=== PATIENT | male | born 1995 | race Caucasian/White ===

== ENCOUNTER 2023-07-06 04:14 | Day surgery (SDC) | payer OTHER ==
[2023-07-01 16:50] VITALS: BMI 19.5
[2023-07-06] MEDS ORDERED: LIDOCAINE HCL/PF 1% SDV 5ML VIAL ONE (07:52)
[2023-07-06] MEDS ORDERED: DEXAMETHASONE SOD PHOSPHATE 10 MG/1 ML VIAL ONE (07:52)
[2023-07-06] MEDS ORDERED: LIDOCAINE 1% P/F 10 MG/ML VIAL INF ONE (10:26)
[2023-07-06] MEDS ORDERED: IOHEXOL 180 MG/1 ML ML IJ ONE (10:27)
[2023-07-06] MEDS ORDERED: DEXAMETHASONE SOD PHOSPHATE 10 MG/1 ML VIAL IVPUSH ONE (10:28)
[2023-07-06] MEDS ORDERED: ACETAMINOPHEN 500 MG TABLET (FP) ONE (10:54)
[2023-07-06 11:01] VITALS: PULSE 82; RESP 18
[2023-07-06 11:41] VITALS: BP 124/72; TEMP 98
[2023-07-06] MEDS ORDERED: ACETAMINOPHEN 500 MG TABLET (FP) PO PRN (16:12)
== END 2023-07-06 11:41 | disposition home or self-care (01) ==
LOC: JASU-SURG 04:14
PROVIDERS: ATTEND Pain Medicine Pain Medicine
PROC: 3E0R3BZ Introduction of Anesthetic Agent into Spinal Canal, Percutaneous Approach (ICD-10-PCS; 2023-07-06)
PROC: 3E0R33Z Introduction of Anti-inflammatory into Spinal Canal, Percutaneous Approach (ICD-10-PCS; principal; 2023-07-06 10:00)
DX: M54.16 Radiculopathy, lumbar region (principal)
CPT/HCPCS: 76000-TC-FY; J1100

== ENCOUNTER 2023-08-06 05:04 | Day surgery (SDC) | payer OTHER ==
[2023-08-03 16:14] VITALS: BMI 19.5
[2023-08-06] MEDS ORDERED: LIDOCAINE HCL/PF 1% SDV 5ML VIAL ONE (07:29)
[2023-08-06] MEDS ORDERED: DEXAMETHASONE SOD PHOSPHATE 10 MG/1 ML VIAL ONE (07:29)
[2023-08-06 12:36] VITALS: RESP 20; TEMP 98
[2023-08-06] MEDS ORDERED: ACETAMINOPHEN 500 MG TABLET (FP) PO PRN (13:08)
[2023-08-06] MEDS: DEXAMETHASONE SOD PHOSPHATE 10 MG/1 ML VIAL IVPUSH ONE ×2 (13:59→14:05)
[2023-08-06] MEDS: LIDOCAINE 1% P/F 10 MG/ML VIAL INF ONE ×2 (13:59→14:07)
[2023-08-06] MEDS: IOHEXOL 180 MG/1 ML ML IJ ONE (14:00)
[2023-08-06 15:27] VITALS: BP 121/85; PULSE 80
== END 2023-08-06 14:53 | disposition home or self-care (01) ==
LOC: JASU-SURG 05:04
PROVIDERS: ATTEND Pain Medicine Pain Medicine
PROC: 3E0R3BZ Introduction of Anesthetic Agent into Spinal Canal, Percutaneous Approach (ICD-10-PCS; 2023-08-06)
PROC: 3E0R33Z Introduction of Anti-inflammatory into Spinal Canal, Percutaneous Approach (ICD-10-PCS; principal; 2023-08-06 14:00)
DX: M54.16 Radiculopathy, lumbar region (principal)
CPT/HCPCS: 76000-TC-FY; J1100